=== PATIENT | female | born 1975 | race Caucasian/White ===

== ENCOUNTER → 2024-12-01 11:47 | Outpatient (CLI) | payer OTHER, SELFPAY ==
--- NOTE | 2024-12-01 11:52 | DI.RAD.S_ITS ---
PROCEDURE: XR ANKLE LT MIN 3V INDICATIONS: Left ankle strain TECHNIQUE: 3 views of the ankle were acquired. COMPARISON: None. FINDINGS: Bones: No fractures or dislocations. Ankle mortise is normally aligned. No suspicious bony lesions. Soft tissues: There is ankle joint effusion. Achilles tendon appears normal. IMPRESSION: Tibiotalar joint effusion, no focal osseous lesion seen. Consider MRI to further assess for internal derangement. Dictated by: Mark Anthony Santos M.D. on 12/02/2024 at 17:05 Approved by: Mark Anthony Santos M.D. on 12/02/2024 at 17:06
== END ==
LOC: DI 11:51
PROVIDERS: Referring Provider Nurse Practitioner Family; Visit Provider Nurse Practitioner Family
DX: S96.912A Strain of unspecified muscle and tendon at ankle and foot level, left foot, initial encounter (principal); M25.472 Effusion, left ankle; X58.XXXA Exposure to other specified factors, initial encounter
CPT/HCPCS: 73610

== ENCOUNTER → 2025-05-07 15:14 | Outpatient (CLI) | payer OTHER, SELFPAY ==
--- NOTE | 2025-05-07 15:15 | DI.MG.S_ITS ---
MM screening mammo implant BI: 05/07/2025. BI-RADS: 2 CLINICAL: 49-year old female for bilateral screening mammogram. Tyrer-Cuzick lifetime risk of 4.8%. No personal or first-degree family history of breast cancer. The patient has bilateral implants. PRIOR EXAMS: 07/04/2017. MAMMOGRAPHY TECHNIQUE: 2D and 3D (tomosynthesis) digital mammographic views obtained, with additional images as needed for full coverage. Current study was also evaluated with a Computer Aided Detection (CAD) system. DENSITY B. There are scattered areas of fibroglandular density. IMPLANTS Breast implants present. MAMMOGRAPHY FINDINGS Bilateral: There are no suspicious masses, calcifications, or other findings in the breast. IMPRESSION: * No evidence of malignancy with benign findings. RECOMMENDATIONS Bilateral * Annual screening mammography. OVERALL ASSESSMENT CATEGORY BI-RADS-2: Benign. [employer] recommends annual screening mammography beginning at age 40 for women with average risk of breast cancer. ELECTRONICALLY SIGNED: Danica Perez M.D. on 05/10/2025 at 04:11:58 PM PT Interpreting Station ID: [id number]
== END ==
DX: Z12.31 Encounter for screening mammogram for malignant neoplasm of breast (principal); Z98.82 Breast implant status
CPT/HCPCS: 77063; 77067